=== PATIENT | female | born 1985 | race Caucasian/White ===

== ENCOUNTER 2017-08-24 19:32 | Emergency (ER) | payer OTHER ==
[2017-08-24] MEDS ORDERED: Ketorolac Tromethamine 60 MG/2 ML VIAL ONE (20:31)
--- NOTE | 2017-08-24 22:21 | RAD ---
RIGHT FOOT THREE VIEWS: 08/24/2017 HISTORY: Right foot pain. FINDINGS: The Lisfranc joint appears normally aligned. There is no fracture or dislocation involving the right foot. There is a corticated osseous density seen anterior to the tibiotalar joint, which may be rel ated to either a remote injury or an accessory center of ossification. A posterior calcaneal entheso phyte is seen. No other osseous abnormality. IMPRESSION: No acute osseous abnormality, right foot. POS: JULIO CESAR
== END 2017-08-24 21:52 | disposition home or self-care (01) ==
LOC: ERS 19:32
DX: M72.2 Plantar fascial fibromatosis (principal); M77.31 Calcaneal spur, right foot; I10 Essential (primary) hypertension; G43.909 Migraine, unspecified, not intractable, without status migrainosus; Z87.891 Personal history of nicotine dependence
CPT/HCPCS: 96372; J1885

== ENCOUNTER 2019-02-05 11:32 | Emergency (ER) | payer BC, OTHER ==
--- NOTE | 2019-02-05 12:05 | RAD ---
XR Wrist 3 Rt View STANDARD: 02/05/2019 11:41 AM CLINICAL INDICATION: Fall with pain COMPARISON: None. FINDINGS: Fracture:No fracture. Arthropathy:None of significance. Incidental findings:None of significance. IMPRESSION: 1. No acute osseous abnormality.
== END 2019-02-05 13:09 | disposition home or self-care (01) ==
LOC: ERS 11:32
DX: S63.501A Unspecified sprain of right wrist, initial encounter (principal); I10 Essential (primary) hypertension; G43.909 Migraine, unspecified, not intractable, without status migrainosus; Z87.891 Personal history of nicotine dependence; W01.0XXA Fall on same level from slipping, tripping and stumbling without subsequent striking against object, initial encounter